=== PATIENT | female | born 1995 | race Caucasian/White ===

== ENCOUNTER 2018-05-31 15:33 | Outpatient (CLI) | payer OTHER, MEDICAID ==
[2018-05-31 18:59] LABS: RUPTURE FETAL MEMBRANES NEGATIVE (NEGATIVE)
== END 2018-05-31 20:34 | disposition home or self-care (01) ==
LOC: OBT 15:33 → L-D 15:36 → OBT 20:34
DX: O36.8130 Decreased fetal movements, third trimester, not applicable or unspecified (principal); Z3A.37 37 weeks gestation of pregnancy
CPT/HCPCS: 76815; 76818; 84112

== ENCOUNTER 2018-06-19 20:48 | Outpatient (CLI) | payer OTHER | END 2018-06-19 23:42 | disposition home or self-care (01) | LOC: OBT 20:48 → L-D 20:49 | DX: O26.893 Other specified pregnancy related conditions, third trimester (principal); R10.9 Unspecified abdominal pain; M54.9 Dorsalgia, unspecified; Z3A.40 40 weeks gestation of pregnancy | CPT/HCPCS: 76818 ==

== ENCOUNTER 2018-06-24 07:56 | Inpatient (IN) | payer OTHER ==
[2018-06-24] MEDS ORDERED: CARBOPROST 250 MCG INJ IM (08:30)
[2018-06-24] MEDS ORDERED: OXYTOCIN 30 UNITS/LR 500 ML IV ×2 (08:30)
[2018-06-24] MEDS ORDERED: MISOPROSTOL 200 MCG TAB PR (08:30)
[2018-06-24] MEDS ORDERED: BUTORPHANOL 1 MG INJ IV (08:30)
[2018-06-24] MEDS ORDERED: IBUPROFEN 600 MG TAB PO (08:30)
[2018-06-24] MEDS ORDERED: AMPICILLIN 2 GM/NS (PMX) 100 ML IV (08:30)
[2018-06-24] MEDS ORDERED: BUTORPHANOL 2 MG INJ IV (08:30)
[2018-06-24] MEDS ORDERED: LIDOCAINE 1% (MPF) 30 ML INJ INJ (08:30)
[2018-06-24] MEDS ORDERED: METHYLERGONOVINE 0.2 MG INJ IM (08:30)
[2018-06-24 09:24] LABS: ADD MAN DIFF? NO
[2018-06-24 09:35] LABS: WHITE BLOOD COUNT 7.5 10^3/ul (4.8-10.8)
[2018-06-24 09:35] LABS: ABNORMAL IP MESSAGE 1; BASOPHILS % 0.1 % (0.0-2.0); EOSINOPHILS # 0.1 10^3/ul (0.0-0.5); EOSINOPHILS % 1.1 % (0.0-7.0); HEMATOCRIT 30.6 % (37.0-47.0); HEMOGLOBIN 9.5 g/dl (12.0-16.0); LYMPHOCYTES # 2.7 10^3/ul (0.8-2.9); MEAN CORPUSCULAR HEMOGLOBIN 23.9 pg (29.0-33.0); MEAN CORPUSCULAR VOLUME 76.9 fl (82.0-101.0); MEAN PLATELET VOLUME 13.1 fl (7.4-10.4); MONOCYTE # 0.5 10^3/ul (0.3-0.9); MONOCYTES % 6.3 % (0.0-11.0); NEUTROPHIL # 4.2 10^3/ul (1.6-7.5); PLATELET COUNT 212 10^3/UL (140-415); RED BLOOD COUNT 3.98 10^6/ul (4.20-5.40); RED CELL DISTRIBUTION WIDTH 15.5 % (11.5-14.5)
[2018-06-24 09:37] LABS: POSITIVE DIFF @See below
[2018-06-24 09:53] LABS: INR 0.84; PROTIME 11.6 Sec (11.9-14.9); PT RATIO 0.9
[2018-06-24 09:54] LABS: PARTIAL THROMBOPLASTIN TIME 25.2 Sec (23.0-35.0)
[2018-06-24] MEDS: LACTATED RINGER'S 1,000 ML IV ×2 (10:24→17:08)
[2018-06-24 11:32] LABS: AMPHETAMINE/METHAMPHETAMINE Negative (NEGATIVE); BARBITURATES Negative (NEGATIVE); BENZODIAZEPINES Negative (NEGATIVE); CANNABINOIDS Negative (NEGATIVE); COCAINE Negative (NEGATIVE); OPIATES Negative (NEGATIVE)
[2018-06-24] MEDS: MISOPROSTOL 50 MCG CAPSULE PO ×2 (11:37→18:02)
[2018-06-24] MEDS ORDERED: AMPICILLIN 1 GM/NS (PMX) 50 ML IV (12:30)
[2018-06-24 14:01] LABS: HEPATITIS B SURFACE ANTIGEN NEGATIVE (NEGATIVE)
[2018-06-25] MEDS: LACTATED RINGER'S 1,000 ML IV ×5 (01:18→21:55)
[2018-06-25] MEDS: MISOPROSTOL 50 MCG CAPSULE PO ×5 (02:32→21:00)
[2018-06-25] MEDS: OXYTOCIN 30 UNITS/LR 500 ML IV (09:06)
[2018-06-25] MEDS ORDERED: FENTAnyl 2MCG/ML-ROPIV 0.2% 100 ML ×2 (10:30→14:41)
[2018-06-25 12:13] LABS: ADD UMIC YES; UR ASCORBIC ACID NEGATIVE (NEGATIVE); UR BILIRUBIN (Dip) NEGATIVE (NEGATIVE); UR BLOOD (Dip) 1+ mg/dL (NEGATIVE); UR CLARITY CLEAR (CLEAR); UR COLOR STRAW (YELLOW); UR GLUCOSE (Dip) NEGATIVE (NEGATIVE); UR KETONES (Dip) TRACE mg/dL (NEGATIVE); UR LEUKOCYTE ESTERASE (Dip) NEGATIVE Leu/ul (NEGATIVE); UR MUCUS FEW /HPF (NONE SEEN); UR NITRITE (Dip) NEGATIVE (NEGATIVE); UR RBC 0 /HPF (0-5); UR SPECIFIC GRAVITY (Dip) 1.003 (1.003-1.030); UR TOTAL PROTEIN (Dip) NEGATIVE (NEGATIVE); UR UROBILINOGEN (Dip) NEGATIVE (NEGATIVE); UR WBC 0 /HPF (0-5)
[2018-06-25 12:56] LABS: URIC ACID 6.6 mg/dl (3.1-7.9)
[2018-06-25 13:02] LABS: ALANINE AMINOTRANSFERASE 65 IU/L (13-69); ALBUMIN 2.9 g/dl (3.3-4.9); ALBUMIN/GLOBULIN RATIO 0.96; ALKALINE PHOSPHATASE 294 IU/L (42-121); ANION GAP 8 (5-13); ASPARTATE AMINO TRANSFERASE 64 IU/L (15-46); BILIRUBIN,INDIRECT 0.3 mg/dl (0-1.1); BILIRUBIN,TOTAL 0.3 mg/dl (0.2-1.3); BLOOD UREA NITROGEN 5 mg/dl (7-20); CALCIUM 8.6 mg/dl (8.4-10.2); CARBON DIOXIDE 23 mmol/L (21-31); CHLORIDE 108 mmol/L (97-110); CREATININE 0.46 mg/dl (0.44-1.00); Estimated GFR > 60 mL/min (>60); GLUCOSE 88 mg/dl (70-220); POTASSIUM 3.9 mmol/L (3.5-5.1); SODIUM 139 mmol/L (135-144); TOTAL PROTEIN 5.9 g/dl (6.1-8.1)
[2018-06-25] MEDS: FENTAnyl 2MCG/ML-ROPIV 0.2% 100 ML BAG EPI ×3 (14:49→20:48)
[2018-06-25] MEDS ORDERED: NALOXONE (0.4 MG/ML) INJ IV (15:00)
[2018-06-26] MEDS: MISOPROSTOL 50 MCG CAPSULE PO ×2 (01:00→05:00)
[2018-06-26] MEDS: OXYTOCIN 30 UNITS/LR 500 ML IV ×3 (02:36→22:41)
[2018-06-26] MEDS: LACTATED RINGER'S 1,000 ML IV ×3 (03:04→14:59)
[2018-06-26] MEDS: FENTAnyl 2MCG/ML-ROPIV 0.2% 100 ML BAG EPI ×2 (03:09→08:47)
[2018-06-26] MEDS ORDERED: LIDOCAINE 1.5%/EPI MPF (SDV) 30 ML VIAL (07:00)
[2018-06-26] MEDS: AMPICILLIN 2 GM/NS (PMX) 100 ML IVPB (09:26)
[2018-06-26] MEDS: AMPICILLIN 1 GM/NS (PMX) 50 ML IVPB ×2 (13:14→17:06)
[2018-06-26] MEDS: ONDANSETRON 4 MG INJ IV (13:14)
[2018-06-26] MEDS: ACETAMINOPHEN 325 MG TAB PO (15:00)
[2018-06-26] MEDS ORDERED: DEXAMETHASONE 4 MG/ML 1 ML INJ (17:31)
[2018-06-26] MEDS ORDERED: morphine SULFATE/PF (10 MG/10 ML) INJ (17:37)
[2018-06-26] MEDS ORDERED: ONDANSETRON 4 MG INJ IV (18:00)
[2018-06-26] MEDS ORDERED: HYDROmorphONE 0.5 MG/0.5 ML SYG IV (18:00)
[2018-06-26] MEDS ORDERED: NALOXONE (0.4 MG/ML) INJ IV (18:00)
[2018-06-26] MEDS ORDERED: ZOLPIDEM 5 MG TAB PO (18:00)
[2018-06-26] MEDS: CEFAZOLIN 2 GM/50 ML (PMX) 50 ML IVPB (19:32)
[2018-06-26] MEDS: KETOROLAC 30 MG INJ IV (20:46)
[2018-06-26] MEDS ORDERED: METHYLERGONOVINE 0.2 MG INJ IM (22:30)
[2018-06-26] MEDS ORDERED: NACL 0.9% 3 ML SYG IV (22:30)
[2018-06-26] MEDS ORDERED: OXYTOCIN 30 UNITS/LR 500 ML IV (22:30)
[2018-06-26] MEDS ORDERED: MISOPROSTOL 200 MCG TAB PR (22:30)
[2018-06-26] MEDS ORDERED: CARBOPROST 250 MCG INJ IM (22:30)
[2018-06-26] MEDS ORDERED: NA PHOSPHATE/BIPHOS 133 ML ENEMA PR (22:30)
[2018-06-26] MEDS: LANOLIN HPA 1 PKT TOP (22:39)
[2018-06-27] MEDS: DIPHENHYDRAMINE 50 MG INJ IV (01:28)
[2018-06-27] MEDS: LACTATED RINGER'S 1,000 ML IV (08:52)
[2018-06-27] MEDS: KETOROLAC 30 MG INJ IV (08:53)
[2018-06-27 14:39] LABS: ADD MAN DIFF? NO
[2018-06-27 14:43] LABS: WHITE BLOOD COUNT 16.8 10^3/ul (4.8-10.8)
[2018-06-27 14:43] LABS: BASOPHILS % 0.1 % (0.0-2.0); EOSINOPHILS % 0.2 % (0.0-7.0); HEMATOCRIT 23.4 % (37.0-47.0); HEMOGLOBIN 7.3 g/dl (12.0-16.0); LYMPHOCYTES # 2.5 10^3/ul (0.8-2.9); LYMPHOCYTES % 14.9 % (15.0-51.0); MEAN CORPUSCULAR HEMOGLOBIN 24.4 pg (29.0-33.0); MEAN CORPUSCULAR HGB CONC 31.2 g/dl (32.0-37.0); MEAN CORPUSCULAR VOLUME 78.3 fl (82.0-101.0); MEAN PLATELET VOLUME 12.9 fl (7.4-10.4); MONOCYTE # 0.8 10^3/ul (0.3-0.9); MONOCYTES % 4.9 % (0.0-11.0); NEUTROPHIL # 13.3 10^3/ul (1.6-7.5); NEUTROPHILS % 79.4 % (39.0-77.0); PLATELET COUNT 167 10^3/UL (140-415); RED BLOOD COUNT 2.99 10^6/ul (4.20-5.40); RED CELL DISTRIBUTION WIDTH 16.1 % (11.5-14.5)
[2018-06-27 15:02] LABS: RAPID PLASMA REAGIN NONREACTIVE (NR)
[2018-06-27] MEDS: HYDROmorphONE 0.5 MG/0.5 ML SYG IV (15:41)
[2018-06-27] MEDS: HYDROCODONE/APAP (5/325) TAB PO (18:58)
[2018-06-27] MEDS: IBUPROFEN 800 MG TAB PO (21:43)
[2018-06-28] MEDS: IBUPROFEN 800 MG TAB PO ×3 (06:12→21:28)
[2018-06-28] MEDS: HYDROCODONE/APAP (5/325) TAB PO ×2 (07:53→15:28)
[2018-06-28] MEDS: LANOLIN HPA 1 PKT TOP (23:59)
[2018-06-29] MEDS: IBUPROFEN 800 MG TAB PO (05:48)
[2018-06-29] MEDS: MEASLES,MUMPS,RUBELLA VACCINE INJ SC* (09:00)
[2018-06-29] MEDS: DIPHTH/TET/ACEL PERTUSS (ADULT) 0.5 ML VIAL IM* (09:00)
== END 2018-06-29 12:20 | disposition home or self-care (01) | DRG 788 ==
LOC: L-D 07:56 → PP1 06-26 21:31
PROVIDERS: Obstetrics & Gynecology
PROC: 10D00Z1 Extraction of Products of Conception, Low, Open Approach (ICD-10-PCS; principal; 2018-06-26 17:15)
PROC: 3E033VJ Introduction of Other Hormone into Peripheral Vein, Percutaneous Approach (ICD-10-PCS; 2018-06-26 17:15)
DX: O48.0 Post-term pregnancy (principal); Z3A.41 41 weeks gestation of pregnancy; O33.9 Maternal care for disproportion, unspecified; Z37.0 Single live birth
CPT/HCPCS: 62319; 76815; 80053; 80307; 81001; 84560; 85025; 85610; 85730; 86592; 86850; 86870; 86900; 86901; 87340; 99464